=== PATIENT | female | born 1955 | race African-American/Black ===

== ENCOUNTER 2019-03-02 11:19 | Emergency (ER) | payer OTHER ==
[2019-03-02 11:39] VITALS: BMI 28.3
[2019-03-02 12:25] LABS: EOS % 1.7 % (0-4.5); HEMATOCRIT 42.6 % (32.4-45.2); HEMOGLOBIN 14.9 GM/dL (10.7-15.3); LYMPH % 29.5 % (8-40); MCH 32.3 pg (25.7-33.7); MEAN CELL VOLUME 92.3 fl (80-96); MEAN PLT VOLUME 7.6 fl (7.5-11.1); MONO % 9.9 % (3.8-10.2); NEUT % 57.9 % (42.8-82.8); PLATELET COUNT 267 K/MM3 (134-434); RBC 4.62 M/mm3 (3.60-5.2); RDW 12.9 % (11.6-15.6); WHITE BLOOD COUNT 4.1 K/mm3 (4.0-10.0)
[2019-03-02 12:38] LABS: INR 0.93 (0.83-1.09)
[2019-03-02 12:40] LABS: ACTIVATED PTT 32.7 SECONDS (25.2-36.5)
[2019-03-02 13:03] LABS: ALBUMIN 3.8 g/dl (3.4-5.0); BILIRUBIN,TOTAL 0.5 mg/dL (0.2-1); BLOOD UREA NITROGEN 11.8 mg/dL (7-18); CREATININE 0.9 mg/dL (0.55-1.3); POTASSIUM 3.4 mmol/L (3.5-5.1); TOT PROT 7.2 g/dl (6.4-8.2)
--- NOTE | 2019-03-02 13:28 | PDOC ---
Documentation entered by Marlyn Jalloh SCRIBE, acting as scribe for Jennifer Bran MD. Jennifer Bran MD: This documentation has been prepared by the Shubham sanchez Adrianna, SCRIBE, under my direction and personally reviewed by me in its entirety. I confirm that the documentation accurately reflects all work, treatment, procedures, and medical decision making performed by me. History of Present Illness - General Chief Complaint: Lightheaded Stated Complaint: Lightheaded Time Seen by Provider: 03/02/19 12:03 - History of Present Illness Initial Comments: The patient is a 63 year old female, with a significant PMH of HTN, who presents to the ED BIBEMS for evaluation of one episode of chest palpitations and difficulty breathing prior to arrival. 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 She went to the back room, when she suddenly felt her heart racing and felt as if she was having trouble breathing. Patient notes these symptoms lasted for ~ 1hr, and resolved while in the ambulance en route to the ED. EMS notes the patient was hypertensive and tachycardic upon arrival. Patient notes she has been under a lot of stress recently (mother was diagnosed with dementia), and she attributes her symptoms to this. Denies any history of similar symptoms. Allergies: NKA, NKDA Surgical History: None reported Social History: Denies EtOH, tobacco, or illicit drug use. PCP: Dr. Scott Past History - Past Medical History Allergies/Adverse Reactions: Allergies Allergy/AdvReac Type Severity Reaction Status Date / Time No Known Allergies Allergy Unverified 03/02/19 11:58 Home Medications: Ambulatory Orders Hydrochlorothiazide [Hctz -] 25 mg PO DAILY 03/02/19 COPD: No HTN: Yes - Psycho Social/Smoking Cessation Hx Smoking History: Never smoked Hx Alcohol Use: No Drug/Substance Use Hx: No Review of Systems - Review of Systems Comments:: GENERAL/CONSTITUTIONAL: +Hypertensive. +Stressed. +Not making sense when speaking/not answering questions. No fever or chills. No weakness. HEAD, EYES, EARS, NOSE AND THROAT: No change in vision. No ear pain or discharge. No sore throat. CARDIOVASCULAR: +One episode of heart racing. +Tachycardic upon EMS arrival. + One episode of difficulty breathing. No chest pain. RESPIRATORY: No cough, wheezing, or hemoptysis. GASTROINTESTINAL: No nausea, vomiting, diarrhea or constipation. GENITOURINARY: No dysuria, frequency, or change in urination. MUSCULOSKELETAL: No joint or muscle swelling or pain. No neck or back pain. SKIN: No rash NEUROLOGIC: No headache, vertigo, loss of consciousness, or change in strength/ sensation. ENDOCRINE: No increased thirst. No abnormal weight change. HEMATOLOGIC/LYMPHATIC: No anemia, easy bleeding, or history of blood clots. ALLERGIC/IMMUNOLOGIC: No hives or skin allergy. *Physical Exam - Vital Signs Last Vital Signs Temp Pulse Resp BP Pulse Ox 97.8 F 77 17 152/82 100 03/02/19 15:00 03/02/19 15:00 03/02/19 15:00 03/02/19 15:00 03/02/19 15:00 - Physical Exam GENERAL: Awake, alert, and oriented. Answering questions appropriately, on the phone consistently throughout exam. The patient is in no acute distress. HEAD: Normal with no signs of trauma. EYES: PERRLA, EOMI, sclera anicteric, conjunctiva clear. NECK: Normal range of motion, supple without lymphadenopathy, JVD, or masses. LUNGS: Breath sounds equal, clear to auscultation bilaterally. No wheezes, and no crackles. HEART: +Tachycardic. Regular rhythm, normal S1 and S2 without murmur, rub or gallop. ABDOMEN: Soft, nontender, normoactive bowel sounds. No guarding, no rebound. No masses palpable. EXTREMITIES: Normal range of motion, no edema. No clubbing or cyanosis. No erythema, or tenderness. NEUROLOGICAL: Cranial nerves II through XII grossly intact. Normal speech. No focal neurological deficits. MUSCULOSKELETAL: Back nontender to palpation, no CVA tenderness SKIN: Warm, Dry, normal turgor, no rashes or lesions noted. ED Treatment Course - LABORATORY CBC & Chemistry Diagram: 03/02/19 12:00 03/02/19 12:00 - ADDITIONAL ORDERS Additional order review: 03/02/19 12:30 Urine Culture - Final Urine - Urine Clean Catch NO GROWTH OBTAINED 03/02/19 12:00 RBC 4.62 MCV 92.3 MCHC 35.0 RDW 12.9 MPV 7.6 Neutrophils % 57.9 Lymphocytes % 29.5 Monocytes % 9.9 Eosinophils % 1.7 Basophils % 1.0 - RADIOLOGY Radiology Studies Ordered: Category Date Time Status HEAD CT WITHOUT CONTRAST [CT] Stat CT Scan 03/02/19 12:46 Completed JAN [CHEST X-RAY PORTABLE*] [RAD] Stat Radiology 03/02/19 11:59 Completed Radiograph Interpretation: EXAM#: TYPE/EXAM: RESULT: [id number] RAD/CHEST X-RAY PORTABLE* Chest : Lightheadedness Impression: No acute chest pathology. Reported By: Justice Benoit MD 03/02/19 13:15 EXAM#: TYPE/EXAM: RESULT: [id number] CT/HEAD CT WITHOUT CONTRAST Reason for the study. Confusion, AMS. Impression. No evidence of acute intracranial hemorrhage, edema, midline shift, mass effect, hydrocephalus. No CT evidence of acute territorial ischemic changes. Reported By: Mert Dasilva MD 03/02/19 13:59 Medical Decision Making - Medical Decision Making 03/02/19 12:27 63 yo F presenting with an episode of lightheadedness while at work No associated chest pain Pt also has had episodes of confusion? No weakness No numbness She noted palpitations while she had all these symptoms Symptoms in total lasted 1 hour and self resolved EKG: Twelve-lead EKG was performed and reviewed by me. There is normal sinus rhythm with a normal rate. The axis is normal. The intervals are normal. There are no ST or T wave abnormalities. Impression: Normal twelve-lead EKG 03/02/19 13:22 Laboratory Tests 03/02/19 03/02/19 03/02/19 12:00 12:00 12:00 WBC 4.1 Hgb 14.9 Hct 42.6 Plt Count 267 BUN 11.8 Creatinine 0.9 Creatine Kinase 255 H Troponin I < 0.02 Urine Blood Urine Nitrite Ur Leukocyte Esterase 03/02/19 12:30 WBC Hgb Hct Plt Count BUN Creatinine Creatine Kinase Troponin I Urine Blood Negative Urine Nitrite Negative Ur Leukocyte Esterase Negative CT head: No evidence of ICH, Mass, midline shift Pt states she feels better Pt will follow up with PMD tomorrow Pt given copies of all results Clinical impression: Pre-syncopal episode, initial presentation Discharge - Discharge Information Problems reviewed: Yes Clinical Impression/Diagnosis: Lightheaded Condition: Stable Disposition: HOME - Admission No - Follow up/Referral Referrals: Spike Scott [Primary Care Provider] - - Patient Discharge Instructions Patient Printed Discharge Instructions: DI for Dizziness-Nonvertigo Additional Instructions: Ms. Fraser Thank you for coming in to the ER today Return to the emergency department immediately with ANY new, persistent or worsening symptoms. Continue any medications as previously prescribed by your physician. You should follow up with your primary doctor as soon as possible regarding today's emergency department visit. Please review your labs and CT scan We have sent a urine culture, it should be resulted in 2 days Please make sure your doctor reviews the results of your emergency evaluation. Thank you for coming to the Emergency Department today for your care. It was a pleasure to see you today. Please note that your evaluation is INCOMPLETE until you follow-up with your doctor. - Post Discharge Activity Work/Back to School Note: Back to Work
[2019-03-02 13:32] LABS: URINE APPEARANCE CLEAR; URINE BILIRUBIN NEGATIVE (NEGATIVE); URINE COLOR YELLOW; URINE GLUCOSE (UA) NEGATIVE (NEGATIVE); URINE KETONE NEGATIVE (NEGATIVE); URINE LEUK ESTERASE NEGATIVE (NEGATIVE); URINE NITRITE NEGATIVE (NEGATIVE); URINE PROTEIN NEGATIVE (NEGATIVE); URINE UROBILINOGEN 0.2 mg/dL (0.2-1.0)
[2019-03-02 15:23] VITALS: BP 152/82; PULSE 77; TEMP 97.8
--- NOTE | 2019-03-03 11:55 | EKG ---
Test Reason : Blood Pressure : / mmHG Vent. Rate : 080 BPM Atrial Rate : 080 BPM P-R Int : 178 ms QRS Dur : 082 ms QT Int : 384 ms P-R-T Axes : 018 018 020 degrees QTc Int : 442 ms NORMAL SINUS RHYTHM NORMAL ECG NO PREVIOUS ECGS AVAILABLE Confirmed by DENAE OCHOA MD ([id number]) on 03/03/2019 11:55:28 AM Referred By: Confirmed By:DENAE OCHOA MD
== END 2019-03-02 15:15 | disposition home or self-care (01) ==
LOC: JER 11:19
DX: R42 Dizziness and giddiness (principal); I10 Essential (primary) hypertension
CPT/HCPCS: 36415; 70450-TC; 71045-TC-FY; 80053; 81003; 82550; 82553; 84484; 85025; 85610; 85730; 87086; 93005; 93010; 99284-25